=== PATIENT | female | born 1985 | race Caucasian/White ===

== ENCOUNTER 2016-08-29 18:51 | Emergency (ER) | payer OTHER ==
--- NOTE | ~2016-08-29 | CT71 ---
[facility] A Service of [facility] RADIOLOGY TEXT RESULTS PATIENT: DEANNE MICHAEL LOCATION: [facility] : 81 UNIT #: [id number] AGE: [address]: Lázaro Levy MD SEX: F ORDER DR: [id number] [facility] [address] [place], [place] [address] [id number] E MR#: [id number] Acc #: [id number] NAME: DEANNE MICHAEL : 1985 SEX: F STUDY DATE/TIME: 08/29/2016 19:21 UNIT: [facility] ROOM: STUDY DESCRIPTION: CT Head Wo Contrast Attending Physician: Lázaro Levy M.D. Ordering Physician: Marvel Marin M.D. Primary Care Physician: Primary Care Physician No MEDICAL IMAGING REPORT This report is preliminary unless electronic signature is present EXAM Noncontrast head CT. HISTORY Hit head yesterday, complains of headaches, hit posterior head, some dizziness. This CT exam was performed with one or more of the following radiation dose reduction techniques: automatic exposure control, adjustment of mA and/or kV according to patient size, and iterative reconstruction. FINDINGS Axial noncontrast imaging of the brain demonstrates the brain parenchyma to be normal. No evidence of mass or hemorrhage. Ventricles, sulci, and basilar cisterns unremarkable. Bony calvaria, skull base, and mastoids unremarkable. Multiple body piercings noted. IMPRESSION Negative head CT. Dictated by... Bertin Maki M.D. THIS IS AN ELECTRONICALLY VERIFIED REPORT Bertin Maki M.D. at 08/30/2016 1:07 PM TOBY/rigoberto TD: 08/29/2016 22:42 [facility] A Service [facility] RADIOLOGY TEXT RESULTS PATIENT: DEANNE MICHAEL LOCATION: [facility] : [birth year] UNIT #: [id number] AGE: [address]: Lázaro Levy MD SEX: F ORDER DR: DANE #: [id number] MEDICAL IMAGING REPORT Page 1 of 1 COPY
[~2016-08-29 18:51] MED LIST: ATARAX PO; DIFLUCAN PO; ELIMITE60 GM TOP; HYDROXYZINE HCL25 M1 PO; LOTRISONE CREAM45 GM TOP; PEPCID AC20 M2 PO; PREDNISONE PO; ZYRTEC10 M2 PO
== END 2016-08-29 20:25 | disposition home or self-care (01) ==
LOC: CED 18:51
DX: S06.0X9A Concussion with loss of consciousness of unspecified duration, initial encounter (principal); F17.200 Nicotine dependence, unspecified, uncomplicated; Z87.442 Personal history of urinary calculi; W22.8XXA Striking against or struck by other objects, initial encounter; Y92.69 Other specified industrial and construction area as the place of occurrence of the external cause
CPT/HCPCS: 70450; 84703; 99284

== ENCOUNTER 2016-09-11 13:00 | Emergency (ER) | payer OTHER | END 2016-09-11 13:09 | disposition home or self-care (01) | LOC: CED 13:00 | DX: K64.4 Residual hemorrhoidal skin tags (principal) | CPT/HCPCS: 99282 ==

== ENCOUNTER 2017-01-03 15:51 | Emergency (ER) | payer BC, OTHER ==
[~2017-01-03] VITALS: Ht 160 cm; Wt 77.1 kg
== END 2017-01-03 16:45 | disposition home or self-care (01) ==
LOC: CFTX 15:51 → CED 15:51 → CFTX 16:42
DX: L02.214 Cutaneous abscess of groin (principal); L30.1 Dyshidrosis [pompholyx]; Z98.51 Tubal ligation status
CPT/HCPCS: 99282

== ENCOUNTER 2017-01-11 09:16 | Emergency (ER) | payer BC, OTHER ==
[~2017-01-11] VITALS: Ht 160 cm; Wt 77.1 kg
--- NOTE | ~2017-01-11 | CT4 ---
[facility] A Service of [facility] RADIOLOGY TEXT RESULTS PATIENT: DEANNE MICHAEL LOCATION: [facility] : 81 UNIT #: [id number] AGE: [address]: Cami Boateng SEX: F ORDER DR: [id number] [place] [id number] [facility]. [place], [place] [address] [id number] MR#: [id number] Acc #: [id number] NAME: DEANNE MICHAEL : 1985 SEX: F STUDY DATE/TIME: 01/11/2017 13:42 UNIT: [facility] ROOM: STUDY DESCRIPTION: CT Abd and Pelv Wo Cont Attending Physician: Cami Boateng Pa-C Ordering Physician: Cami Boateng Pa-C Primary Care Physician: No Primary Care Physician MEDICAL IMAGING REPORT This report is preliminary unless electronic signature is present EXAM CT abdomen and pelvis. INDICATION Mid abdominal pain for 4 days. Low back pain. Nausea and vomiting. Renal calculi. TECHNIQUE CT of the abdomen and pelvis without contrast. Coronal and sagittal reconstructions were obtained. This CT exam was performed with one or more of the following radiation dose reduction techniques: automatic exposure control, adjustment of mA and/or kV according to patient size, and iterative reconstruction. COMPARISON CT abdomen and pelvis, 09/04/2015. FINDINGS ABDOMEN: There are nonobstructing left renal calculi. These measure less than 3 mm. There is no hydronephrosis or ureteral calculi. No right renal calculi. Noncontrast evaluation of the remaining solid abdominal organs are within normal limits. The gallbladder is not distended. The bowel is not dilated. Small umbilical hernia. The abdominal wall defect measures approximately 1 cm in diameter. The appendix is normal. PELVIS: There is trace free fluid in the pelvis. The uterus and ovaries are within normal limits. Patient has had a prior tubal ligation. The uterus is retroflexed. No enlarged pelvic or inguinal lymph nodes. Bladder is unremarkable. [facility] A Service of [facility] RADIOLOGY TEXT RESULTS PATIENT: ALEC,DEANNE LOCATION: [facility] : [birth year] UNIT #: [id number] AGE: [address]: Cami Boateng SEX: F ORDER DR: No acute osseous abnormalities. 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 IMPRESSION 1. Nonobstructing left renal calculi. No hydronephrosis or ureteral calculi. 2. Small umbilical hernia without complicating features. Dictated by... Nico Perez M.D. THIS IS AN ELECTRONICALLY VERIFIED REPORT Nico Perez M.D. at 01/12/2017 9:45 AM CLAUDIA/tae TD: 01/11/2017 20:53 JOB #: [id number] MEDICAL IMAGING REPORT Page 1 of 1 COPY
[2017-01-11 10:10] LABS: BASOPHIL# 0.1 X10e3 (0-0.3); BASOPHIL% 0.7 % (0-2.5); DIFF IND NO; EOSINOPHIL# 0.1 X10e3 (0-0.7); EOSINOPHIL% 1.1 % (0.0-7.0); HEMATOCRIT 40.2 % (35.0-45.0); HEMOGLOBIN 13.5 gm/dL (12.0-16.0); LYMPHOCYTE# 2.3 X10e3 (1.0-3.5); LYMPHOCYTE% 24.6 % (17.0-45.0); MEAN CELL VOLUME 89.2 FL (83-96); MEAN CORPUSCULAR HEMOGLOBIN 29.9 PG (28-34); MEAN CORPUSCULAR HGB CONC 33.5 g/dL (30-36); MEAN PLATELET VOLUME 8.8 FL (6.5-11.5); MONOCYTE# 0.7 X10e3 (0-1.0); MONOCYTE% 7.1 % (3.0-12.0); NEUTROPHIL# 6.2 X10e3 (1.5-7.1); NEUTROPHIL% 66.5 % (40-75); PLATELET COUNT 236 X10e3 (140-420); RED BLOOD COUNT 4.51 X10e (3.90-5.30); RED CELL DISTRIBUTION WIDTH 12.7 % (11.0-15.5); WHITE BLOOD COUNT 9.3 X10e3 (4.0-10.5)
[2017-01-11 10:35] LABS: ALBUMIN SERUM 3.9 g/dL (3.5-5.0); BILIRUBIN, DIRECT 0.1 mg/dL (0.0-0.2); BILIRUBIN,INDIRECT 0.4 mg/dL (0.0-0.9); BILIRUBIN,TOTAL 0.5 mg/dL (0.2-2.0); BUN/CREATININE RATIO 17.14; CALCIUM SERUM 8.8 mg/dL (8.4-10.2); CREATININE SERUM 0.7 mg/dL (0.6-1.4); GLOM FILT RATE Estimated 113.8 mL/min (>60); POTASSIUM 4.4 mmol/L (3.5-5.1); PROTEIN TOTAL SERUM 7.3 g/dL (6.0-8.3)
[2017-01-11 10:35] LABS: URINE SOURCE CLEAN CATCH
[2017-01-11 10:42] LABS: URINE APPEARANCE CLEAR; URINE BILIRUBIN NEG (NEG); URINE BLOOD 3+ (NEG); URINE COLOR ORANGE; URINE GLUCOSE NEG (NEG); URINE KETONE NEG (NEG); URINE LEUKOCYTE ESTERASE TRACE (NEG); URINE NITRATE NEG (NEG); URINE PH 7.5 (5-8); URINE PROTEIN NEG (NEG); URINE SPECIFIC GRAVITY 1.013 (1.003-1.035); URINE UROBILINOGEN 0.2 MG/DL (NEG)
[2017-01-11 10:45] LABS: URBCS1 AUWI 200-300 /[HPF] (0-2); URINE BACTERIA AUWI NEG (NEGATIVE); URINE SQUAMOUS EPITHELIAL CELL NONE SEEN /[HPF]
[2017-01-11 10:47] LABS: CULTURE INDICATED? NO
== END 2017-01-11 15:01 | disposition home or self-care (01) ==
LOC: CED 09:16
PROVIDERS: Physician Assistant Medical
DX: R10.9 Unspecified abdominal pain (principal); R19.7 Diarrhea, unspecified; R11.2 Nausea with vomiting, unspecified; Z98.51 Tubal ligation status
CPT/HCPCS: 36415; 74176; 80048; 80076; 81003; 82150; 83690; 84703; 85025; 96361; 96374; 96375; 99284; J2405; J3486